=== PATIENT | female | born 1965 | race Caucasian/White ===

== ENCOUNTER 2019-07-16 01:36 | Emergency (ER) | payer SELFPAY ==
[2019-07-16] MEDS ORDERED: ASPIRIN 81 MG TABLET, CHEWABLE PO ONE (01:42)
[2019-07-16 04:01] LABS: ABSOLUTE LYMPHOCYTES (AUTO) 1.3 10^3/uL (0.5-4.7); ABSOLUTE MONOCYTES (AUTO) 0.5 10^3/uL (0.1-1.4); ABSOLUTE NEUT (AUTO) 9.9 10^3/uL (1.7-8.2); BASOPHILS % (AUTO) 0.3 % (0-2); EOSINOPHILS % (AUTO) 0.4 % (0-6); HEMOGLOBIN 13.7 g/dL (12.0-15.5); LYMPHOCYTES % (AUTO) 11.3 % (13-45); MEAN CORPUSCULAR HEMOGLOBIN 28.5 pg (27.0-33.4); MEAN CORPUSCULAR HGB CONC 33.5 g/dL (32.0-36.0); MEAN CORPUSCULAR VOLUME 85 fl (80-97); PLATELET COUNT 259 10^3/uL (150-450); RED BLOOD COUNT 4.83 10^6/uL (3.72-5.28); RED CELL DISTRIBUTION WIDTH 13.6 % (11.5-14.0); TOTAL CELLS COUNTED % (AUTO) 100 %; WHITE BLOOD COUNT 11.8 10^3/uL (4.0-10.5)
[2019-07-16] MEDS ORDERED: ONDANSETRON HCL INJ/PF 4 MG/2 ML SDV IV ONE (04:07)
[2019-07-16 04:22] LABS: ALBUMIN 4.9 g/dL (3.5-5.0); ALKALINE PHOSPHATASE 96 U/L (38-126); ANION GAP 12 (5-19); ASPARTATE AMINO TRANSFERASE 25 U/L (14-36); BILIRUBIN,DIRECT 0.3 mg/dL (0.0-0.4); BILIRUBIN,TOTAL 0.5 mg/dL (0.2-1.3); BLOOD UREA NITROGEN 21 mg/dL (7-20); CALCIUM 10.6 mg/dL (8.4-10.2); CARBON DIOXIDE 28 mmol/L (22-30); CHLORIDE 100 mmol/L (98-107); CREATINE KINASE 54 U/L (30-135); GLUCOSE 135 mg/dL (75-110); POTASSIUM 4.9 mmol/L (3.6-5.0); TOTAL PROTEIN 8.5 g/dL (6.3-8.2)
[2019-07-16 04:38] LABS: TROPONIN I < 0.012 ng/mL
--- NOTE | 2019-07-16 04:56 | RADIOLOGY REPORT (SQ) ---
EXAM DESCRIPTION: XR CHEST 2 VIEWS COMPLETED DATE/TME: 07/16/2019 00:00 CLINICAL HISTORY: 54 years Female, cp COMPARISON: 11/11/16 NUMBER OF VIEWS/TECHNIQUE: 2, Frontal, Lateral FINDINGS: Increased lung volume, clear parenchyma, normal cardiac silhouette, and intact bony thorax. IMPRESSION: No acute cardiopulmonary findings.
--- NOTE | 2019-07-16 06:25 | ER Document Report ---
ED General - General Chief Complaint: Nausea/Vomiting Stated Complaint: CHEST PAIN Time Seen by Provider: 07/16/19 06:02 TRAVEL OUTSIDE OF THE [place] IN LAST 30 DAYS: No - HPI Notes: Patient presents for concern of pain in her back located around her right scapular region. She states the pain started around 9 PM. The pain then moved upward into her trapezius area. She had one episode of vomiting. No history of heart attack or strokes. The only medication she takes her antihistamines. No recent cough congestion fevers or abdominal pain. - Related Data Allergies/Adverse Reactions: ampicillin Allergy (Verified 07/16/19 01:38) Sulfa (Sulfonamide Antibiotics) Allergy (Verified 07/16/19 01:38) Past Medical History - Social History Smoking Status: Never Smoker Chew tobacco use (# tins/day): No Frequency of alcohol use: None Drug Abuse: None Family History: Reviewed & Not Pertinent Patient has suicidal ideation: No Patient has homicidal ideation: No Renal/ Medical History: Reports: Hx Kidney Stones Review of Systems - Review of Systems Constitutional: No symptoms reported EENT: No symptoms reported Cardiovascular: No symptoms reported Respiratory: No symptoms reported Gastrointestinal: No symptoms reported Genitourinary: No symptoms reported Female Genitourinary: No symptoms reported Musculoskeletal: See HPI Skin: No symptoms reported Hematologic/Lymphatic: No symptoms reported Neurological/Psychological: No symptoms reported Physical Exam - Vital signs Vitals: Temp Pulse Resp BP Pulse Ox 98.0 F 89 17 160/107 H 98 07/16/19 01:48 07/16/19 01:48 07/16/19 01:48 07/16/19 01:48 07/16/19 01:48 - General General appearance: Appears well, Alert - HEENT Head: Normocephalic, Atraumatic Eyes: Normal Conjunctiva: Normal - Respiratory Respiratory status: No respiratory distress Chest status: Nontender Breath sounds: Normal - Cardiovascular Rhythm: Regular Heart sounds: Normal auscultation Murmur: No - Abdominal Inspection: Normal Distension: No distension Bowel sounds: Normal Tenderness: Nontender - Back Back: Normal, Other - Unable to reproduce pain with palpation - Neurological Neuro grossly intact: Yes Cognition: Normal Orientation: AAOx4 Course - Re-evaluation Re-evalutation: 07/16/19 08:21 Work-up -2- troponins with no concerning findings on EKG chest x-ray or labs. Patient is low risk heart score. Patient's pain is a most nonexistent after Toradol administration located in her right scapula suggestive of muscular skeletal etiology. I did discuss if her symptoms were to change or for any worsening of symptoms return for reevaluation. She is to follow-up on an outpatient basis as needed. - Vital Signs Vital signs: Temp Pulse Resp BP Pulse Ox 98.0 F 89 18 179/92 H 94 07/16/19 01:48 07/16/19 01:48 07/16/19 04:15 07/16/19 04:15 07/16/19 04:28 - Laboratory Result Diagrams: 07/16/19 03:30 07/16/19 03:30 Laboratory results interpreted by me: 07/16/19 07/16/19 03:30 03:30 WBC 11.8 H Lymph % (Auto) 11.3 L Absolute Neuts (auto) 9.9 H Seg Neutrophils % 84.0 H BUN 21 H Glucose 135 H Calcium 10.6 H Total Protein 8.5 H - EKG Interpretation by Me EKG shows normal: Sinus rhythm Rate: Normal Heart block present: 1st Degree - Concerning ST depressions or elevations, normal axis Discharge - Discharge Clinical Impression: Pain of right scapula Condition: Good Disposition: HOME, SELF-CARE Additional Instructions: If your symptoms are worsening or any change in the pain you are experiencing please seek medical reevaluation. Prescriptions: Naproxen 500 mg PO BID #10 tablet
[2019-07-16] MEDS ORDERED: KETOROLAC TROMETHAMINE INJ/PF 30 MG/1 ML SDV IV ONE (06:28)
--- NOTE | 2019-07-16 07:02 | EKG REPORT ---
SEVERITY:- ABNORMAL ECG - SINUS RHYTHM FIRST DEGREE AV BLOCK LA ABNORMALITY : Confirmed by: Branden Pemberton MD 16-Jul-2019 07:02:18
[2019-07-16 08:30] VITALS: BP 158/86
== END 2019-07-16 08:31 | disposition home or self-care (01) ==
LOC: ER 01:36
DX: M25.511 Pain in right shoulder (principal); R11.2 Nausea with vomiting, unspecified; R07.9 Chest pain, unspecified; Z88.0 Allergy status to penicillin; Z88.2 Allergy status to sulfonamides; Z87.442 Personal history of urinary calculi
CPT/HCPCS: 93005; 99283; 96374; 96375; 36415; 82553; 82550; 85025; 80053; 84484; 71046; 93010; J1885; J2405